=== PATIENT | female | born 1965 | race American Indian/Alaskan Native ===

== ENCOUNTER 2019-07-17 11:11 | Emergency (ER) | payer SELFPAY ==
--- NOTE | 2019-07-17 11:30 | Event Note ---
ED Screening Note Date of service: 07/17/19 Time: 11:29 ED Screening Note: 54 y o femle presents with intermittent couging worsening causing chest pain no relief with otc meds This initial assessment/diagnostic orders/clinical plan/treatment(s) is/are subject to change based on patients health status, clinical progression and re- assessment by fellow clinical providers in the ED. Further treatment and workup at subsequent clinical providers discretion. Patient/guardian urged not to elope from the ED as their condition may be serious if not clinically assessed and managed. Initial orders include: cxr acc eval
--- NOTE | 2019-07-17 12:37 | XRay Report ---
CHEST 2 VIEWS INDICATION: cough. COMPARISON: None FINDINGS: Support devices: None. Heart: Within normal limits. Lungs/pleura: No acute air space or interstitial disease. No pneumothorax. Additional findings: None. IMPRESSION: Normal chest x-ray Signer Name: Curtis Burnham Jr, MD Signed: 07/17/2019 12:32 PM Workstation Name: [id number]
--- NOTE | 2019-07-17 16:03 | Emergency Department Report ---
<GALE SUAREZ - Last Filed: 07/17/19 17:31> ED General Adult HPI - General Chief complaint: Upper Respiratory Infection Stated complaint: SOB/COUGHING Time Seen by Provider: 07/17/19 15:58 Source: patient Mode of arrival: Ambulatory Limitations: No Limitations - History of Present Illness Initial comments: 54-year-old -[place] female with history of GERD presents with complaints of cough 2 weeks and shortness of breath today. She states the cough is mildly productive of yellow sputum. +congestion. She denies any fever/chills/sweats, leg pain/swelling, smoking, or history of asthma. She reports long car ride about 8 weeks ago to [place] for a cruise. She states she does have chest pain, however it is only with coughing. Patient states she has not taken any Zantac for her GERD for the past 2 or 3 months due to the recall on the medication. She states she is not currently taking anything for GERD and it has been worsening for the past 2 weeks. Patient admits to her cough being worse at night and it waking her up about 1-2 hours after going to bed. Patient also admits to a diet high in spicy and acidic foods. She states she feels short of breath due to not being able to breathe out of her nose and is getting winded from speaking in her nose being congested. Denies any difficulty inhaling or exhaling or chest pain with breathing - Related Data Previous Rx's Medication Instructions Recorded Last Taken Type Azithromycin [Zithromax Z-GORDON] 250 mg PO DAILY #6 tablet 08/19/14 Unknown Rx Codeine Phosphate/Guaifenesin 10 ml PO BID #118 ml 08/19/14 Unknown Rx [guaiFENesin-Codeine Syrup] Cyclobenzaprine [Flexeril 10 MG 10 mg PO TID PRN #30 tablet 02/14/15 Unknown Rx TAB] HYDROcodone/APAP 5-325 [T[place]ill 1 each PO Q6HR PRN #25 tablet 02/14/15 Unknown Rx 5-325 mg TAB] Prednisone [predniSONE 5 mg (6-Day 5 mg PO .TAPER #1 tab.ds.pk 02/14/15 Unknown Rx Pack, 21 Tabs)] Ibuprofen [Motrin] 800 mg PO Q8HR PRN #30 tablet 08/28/18 Unknown Rx Prednisone [predniSONE 10 mg 10 mg PO .TAPER #1 tab.ds.pk 08/28/18 Unknown Rx (6-Day Pack, 21 Tabs)] traMADoL [Ultram] 50 mg PO Q6HR PRN #24 tablet 08/28/18 Unknown Rx Levocetirizine Dihydrochloride 5 mg PO QHS 30 Days #30 tablet 07/17/19 Unknown Rx [Xyzal] Pantoprazole [Protonix] 40 mg PO QAM 30 Days #30 tablet 07/17/19 Unknown Rx Allergies Allergy/AdvReac Type Severity Reaction Status Date / Time No Known Allergies Allergy Verified 08/19/14 13:17 ED Review of Systems Constitutional: denies: chills, fever Eyes: denies: vision change ENT: congestion. denies: throat pain Respiratory: cough, shortness of breath. denies: SOB with exertion, SOB at rest Cardiovascular: chest pain (with cough only). denies: palpitations Endocrine: no symptoms reported Gastrointestinal: denies: abdominal pain, nausea, vomiting, diarrhea Genitourinary: denies: frequency Musculoskeletal: denies: back pain Skin: denies: rash, lesions Neurological: denies: headache, weakness, paresthesias ED Past Medical Hx - Past Medical History Previous Medical History?: No Additional medical history: bronchitis - Surgical History Past Surgical History?: Yes Additional Surgical History: HYSTERECTOMY - Social History Smoking Status: Never Smoker Substance Use Type: None - Medications Home Medications: Home Medications Medication Instructions Recorded Confirmed Last Taken Type Azithromycin [Zithromax Z-GORDON] 250 mg PO DAILY #6 tablet 08/19/14 Unknown Rx Codeine Phosphate/Guaifenesin 10 ml PO BID #118 ml 08/19/14 Unknown Rx [guaiFENesin-Codeine Syrup] Cyclobenzaprine [Flexeril 10 MG 10 mg PO TID PRN #30 tablet 02/14/15 Unknown Rx TAB] HYDROcodone/APAP 5-325 [[place]ill 1 each PO Q6HR PRN #25 tablet 02/14/15 Unknown Rx 5-325 mg TAB] Prednisone [predniSONE 5 mg (6-Day 5 mg PO .TAPER #1 tab.ds.pk 02/14/15 Unknown Rx Pack, 21 Tabs)] Ibuprofen [Motrin] 800 mg PO Q8HR PRN #30 tablet 08/28/18 Unknown Rx Prednisone [predniSONE 10 mg 10 mg PO .TAPER #1 tab.ds.pk 08/28/18 Unknown Rx (6-Day Pack, 21 Tabs)] traMADoL [Ultram] 50 mg PO Q6HR PRN #24 tablet 08/28/18 Unknown Rx Levocetirizine Dihydrochloride 5 mg PO QHS 30 Days #30 tablet 07/17/19 Unknown Rx [Xyzal] Pantoprazole [Protonix] 40 mg PO QAM 30 Days #30 tablet 07/17/19 Unknown Rx ED Physical Exam - General Limitations: No Limitations General appearance: alert, in no apparent distress - Head Head exam: Present: atraumatic, normocephalic - Eye Eye exam: Present: normal appearance - ENT ENT exam: Present: normal orophraynx, mucous membranes moist - Neck Neck exam: Present: normal inspection - Respiratory Respiratory exam: Present: normal lung sounds bilaterally. Absent: respiratory distress - Cardiovascular Cardiovascular Exam: Present: regular rate, normal rhythm. Absent: systolic murmur, diastolic murmur, rubs, gallop - GI/Abdominal GI/Abdominal exam: Present: soft, normal bowel sounds. Absent: distended, tenderness, guarding, rebound, rigid - Extremities Exam Extremities exam: Present: normal inspection. Absent: calf tenderness (no lower leg swelling noted) - Back Exam Back exam: Present: normal inspection - Neurological Exam Neurological exam: Present: alert, oriented X3 - Psychiatric Psychiatric exam: Present: normal affect, normal mood - Skin Skin exam: Present: warm, dry, intact, normal color. Absent: rash ED Course - Reevaluation(s) Reevaluation #1: 07/17/19 16:06 Patient refuses lab draw ED Medical Decision Making - Radiology Data Radiology results: report reviewed CHEST 2 VIEWS INDICATION: cough. COMPARISON: None FINDINGS: Support devices: None. Heart: Within normal limits. Lungs/pleura: No acute air space or interstitial disease. No pneumothorax. Additional findings: None. IMPRESSION: - Medical Decision Making 54-year-old -[place] female patient presents with cough 2 weeks and nasal congestion causing her to feel short of breath today. He reports her GERD has been worsening for the past 2 weeks. She is currently not taking anything for her GERD. Her cough is worse at night and wakes her up from her sleep. Patient admits to eating right before bed and eating spicy acidic foods. She denies any trouble inhaling and exhaling. Patient shortness of breath seems to be more of nasal congestion. Patient states Zyrtec is not helping with her congestive. And to discontinue Zyrtec and start cetirizine. Patient also to start Protonix for her GERD, suspect this as the cause of patient's cough. She refuses any labs or EKG. Her vitals are normal with a normal pulse ox. C hest x-ray is negative for acute findings. Patient is stable for discharge home and follow-up with PCP. Given that patient refused labs and an EKG, discussed very strict return precautions in great detail with patient who verbalizes understanding. ED Disposition Disposition: DC-01 TO HOME OR SELFCARE Is pt being admited?: No Condition: Stable Instructions: Diet for Ulcers and Gastritis (ED), Gastroesophageal Reflux Disease (ED), Dyspnea (ED) Prescriptions: Levocetirizine Dihydrochloride [Xyzal] 5 mg PO QHS 30 Days #30 tablet Pantoprazole [Protonix] 40 mg PO QAM 30 Days #30 tablet Referrals: PRIMARY CARE, [Primary Care Provider] - 3-5 Days Forms: Work/School Release Form(ED) <JUNIOR PACKER - Last Filed: 07/17/19 22:42> ED Review of Systems ROS: Stated complaint: SOB/COUGHING Other details as noted in HPI ED Course Vital Signs 07/17/19 07/17/19 07/17/19 11:29 18:06 18:09 Temperature 98.8 F Pulse Rate 92 H Respiratory 18 Rate Blood Pressure 137/88 173/94 O2 Sat by Pulse 100 99 Oximetry Critical care attestation.: If time is entered above; I have spent that time in minutes in the direct care of this critically ill patient, excluding procedure time.
[2019-07-17] MEDS ORDERED: PANTOPRAZOLE 40 MG TAB PO ONE (16:04)
[2019-07-17 18:09] VITALS: BP 173/94
== END 2019-07-17 18:13 | disposition home or self-care (01) ==
LOC: ED 11:11
DX: R05 Cough (principal); R06.02 Shortness of breath; Z90.710 Acquired absence of both cervix and uterus; Z79.899 Other long term (current) drug therapy
CPT/HCPCS: 71046